=== PATIENT | male | born 1995 | race Caucasian/White ===

== ENCOUNTER 2018-10-02 00:28 | Emergency (ER) | payer OTHER, SELFPAY ==
[2018-10-02 00:29] VITALS: BP 142/91; PULSE 89; RESP 18; TEMP 37; O2SAT 98; BMI 34.9
--- NOTE | 2018-10-02 00:48 | ED.VISSUMM ---
- ER Visit Summary Date of Service: 10/02/18 Chief Complaint: Lump at groin History of Present Illness: The patient is a 23 M who states that he noticed a lump 5 days ago. He states that he thinks it was a rubbed raw because today it was more red and irritated and oozing pus. No history of prior similar symptoms. No systemic symptoms such as fevers chest pain shortness of breath vomiting diarrhea. He is not diabetic. No history of prior similar symptoms. Physical Examination: Afebrile vitals normal Moist mucous membranes Heart regular rate No respiratory distress There is a small open wound on the right side of the scrotum no active drainage she has some surrounding erythema and induration but no fluctuance no focal abscess amenable to incision and drainage at this time Test Results: Not indicated Emergency Department Course and Treatment: Patient does not have a focal abscess amenable to incision and drainage at this time. We will treat with Keflex and Bactrim. He was instructed on specific signs and symptoms to monitor for and understands to return for new or worsening symptoms. All questions answered bedside and patient discharged. Treatment Plan: [] Disposition: Discharge Impression: Scrotal cellulitis This note was generated with [employer] dictation software. It may contain incorrect words, spelling, and punctuation that were not noted in review of the chart prior to signing ED Disposition - Plan for ED Patient: Referrals: NOT,DEFINED [Primary Care Provider] -
--- NOTE | 2018-10-02 00:50 | ED.DEP ---
ED Disposition - Plan for ED Patient: Instructions: ED Infec Skin Cellulitis Prescriptions: Cephalexin [Keflex] 500 mg PO Q6 #40 cap Smz/Tmp Ds [Bactrim Ds] 1 tab PO BID #14 tab Referrals: NOT,DEFINED [Primary Care Provider] -
[2018-10-02 01:00] VITALS: BP 135/92; PULSE 87; RESP 16; O2SAT 98
== END 2018-10-02 01:01 | disposition home or self-care (01) ==
LOC: ED 00:51
PROVIDERS: Emergency Provider Emergency Medicine
DX: N49.2 Inflammatory disorders of scrotum (principal)
CPT/HCPCS: 99282